=== PATIENT | female | born 1950 | race Caucasian/White ===

== ENCOUNTER 2019-10-08 17:49 | Inpatient (IN) | payer OTHER ==
[~2019-10-08] VITALS: Ht 170.2 cm; Wt 52.8 kg
[2019-10-08 18:02] VITALS: BP 93/51
[2019-10-08 18:31] LABS: URINE BILIRUBIN NEGATIVE (Negative); URINE BLOOD 3+ (Negative); URINE CLARITY SL CLOUDY; URINE COLOR YELLOW; URINE GLUCOSE-RANDOM* NEGATIVE (Negative); URINE KETONES NEGATIVE (Negative); URINE LEUKOCYTES-REFLEX 3+ (Negative); URINE NITRITE-REFLEX POSITIVE (Negative); URINE PROTEIN (DIPSTICK) TRACE (Negative); URINE SPECIFIC GRAVITY 1.015 (1.005-1.035); URINE UROBILINOGEN 0.2 E.U./dl (0.2-1.0)
[2019-10-08 18:32] LABS: HEMATOCRIT 31.3 % (37.0-47.0); HEMOGLOBIN 10.7 gm/dL (12.0-15.0); MCHC 34.3 g/dL (28.0-37.0); MCV 125.3 fL (80.0-100.0); RDW 17.9 % (10.5-14.5); WBC 9.6 thou/uL (4.0-11.0)
[2019-10-08 18:38] LABS: BACTERIA-REFLEX >30 Many /HPF (None Seen)
[2019-10-08 18:38] LABS: CALCIUM 8.2 mg/dL (8.5-10.1); CREATININE 1.2 mg/dL (0.6-1.0); POTASSIUM 3.8 mmol/L (3.5-5.1)
[2019-10-08 18:39] LABS: CASTS None Seen /LPF (None Seen); CRYSTALS None Seen /LPF (None Seen); SQUAMOUS 0-3 Few /LPF (0-3); URINE WBC-REFLEX >25 Many /HPF (0-5)
[2019-10-08 18:40] LABS: URINE RBC 0-2 Rare /HPF (0-2)
[2019-10-08 18:44] LABS: ALBUMIN 1.9 g/dL (3.4-5.0); TOTAL BILIRUBIN 0.6 mg/dL (<0.1-1.0); TOTAL PROTEIN 6.7 g/dL (6.4-8.2)
[2019-10-08 19:06] LABS: ABSOLUTE NEUTROPHILS 8.6 thou/uL (1.4-8.2); PLATELET COUNT 96 thou/uL (150-400); PLATELET ESTIMATE SLIGHTLY DECREASED
[2019-10-08 21:45] VITALS: BP 96/51
[2019-10-08 22:14] VITALS: BP 104/59
[2019-10-08 23:00] VITALS: BP 88/40
[2019-10-09] VITALS (57 sets, daily range): BP systolic 83–123; BP diastolic 38–79
[2019-10-09] MEDS ORDERED: NEURONTIN300 MG PO (01:17)
[2019-10-09] MEDS ORDERED: MS CONTIN15 MG PO (01:19)
[2019-10-09 05:52] LABS: HEMATOCRIT 20.5 % (37.0-47.0); MCH 42.9 pg (26.0-34.0); RBC 1.6 mil/uL (4.20-5.00); WBC 3.4 thou/uL (4.0-11.0)
[2019-10-09 05:54] LABS: MCHC 33.5 g/dL (28.0-37.0); RDW 17.5 % (10.5-14.5)
[2019-10-09 05:57] LABS: HEMOGLOBIN 6.9 gm/dL (12.0-15.0)
[2019-10-09 06:04] LABS: CALCIUM 6.2 mg/dL (8.5-10.1); CREATININE 0.7 mg/dL (0.6-1.0)
[2019-10-09 06:06] LABS: POTASSIUM 2.9 mmol/L (3.5-5.1)
[2019-10-09 06:49] LABS: APTT 28.7 Seconds (24.5-32.8); CALCIUM 6.1 mg/dL (8.5-10.1); CREATININE 0.8 mg/dL (0.6-1.0); FIBRINOGEN 130.7 mg/dL (210-360); INR 1.2; POTASSIUM 3.1 mmol/L (3.5-5.1); PROTIME 11.9 Seconds (9.3-11.4)
[2019-10-09 11:04] LABS: OBSERVED RETIC COUNT 1.22 % (0.6-2.6)
[2019-10-09 11:14] LABS: CALCIUM 6.5 mg/dL (8.5-10.1); CREATININE 0.9 mg/dL (0.6-1.0)
[2019-10-09 11:19] LABS: % SATURATION 12 % (20-39); IRON 14 ug/dL (50-170); POTASSIUM 2.8 mmol/L (3.5-5.1); TIBC 116 ug/dL (250-450)
[2019-10-09 21:07] LABS: HEMATOLOGY COMMENTS Note: (()); HEMOGLOBIN 7.7 g/dL (11.1-15.9)
[2019-10-10] VITALS (130 sets, daily range): BP systolic 49–159; BP diastolic 17–123
[2019-10-10 00:38] LABS: BE(vivo) -19.1 mmol/L (-2 to +3); HCO3 12.4 mmol/L (22.0-26.0); PCO2 59.8 mmHg (35.0-45.0); PO2 79.9 mmHg (80.0-100.0); pH 6.936 (7.360-7.450); sO2 85.9 % (92.0-98.0)
[2019-10-10 03:52] LABS: BE(vivo) -8.3 mmol/L (-2 to +3); HCO3 15.6 mmol/L (22.0-26.0); PCO2 26.9 mmHg (35.0-45.0); PO2 263.6 mmHg (80.0-100.0); pH 7.382 (7.360-7.450); sO2 99.6 % (92.0-98.0)
[2019-10-10 05:58] LABS: ABSOLUTE NEUTROPHILS 11.4 thou/uL (1.4-8.2); BASOPHILS 0.2 % (0.0-2.0); EOSINOPHILS 0.1 % (0.0-3.0); HEMATOCRIT 23.3 % (37.0-47.0); HEMOGLOBIN 7.8 gm/dL (12.0-15.0); LYMPHOCYTES 3.6 % (24.0-44.0); MCH 42.9 pg (26.0-34.0); MCHC 33.6 g/dL (28.0-37.0); MCV 127.4 fL (80.0-100.0); MONOCYTES 7.6 % (1.0-8.0); PLATELET COUNT 79 thou/uL (150-400); POLYS 88.5 % (36.0-66.0); RBC 1.83 mil/uL (4.20-5.00); RDW 18.2 % (10.5-14.5)
[2019-10-10 06:07] LABS: WBC 12.9 thou/uL (4.0-11.0)
[2019-10-10 06:25] LABS: ALBUMIN 1.2 g/dL (3.4-5.0); CALCIUM 6.3 mg/dL (8.5-10.1); MAGNESIUM 1.5 mg/dL (1.8-2.4); POTASSIUM 3.2 mmol/L (3.5-5.1); TOTAL BILIRUBIN 0.8 mg/dL (<0.1-1.0); TOTAL PROTEIN 4.5 g/dL (6.4-8.2)
[2019-10-10 09:29] LABS: HEMOGLOBIN 8.6 gm/dL (12.0-15.0); MCH 42.6 pg (26.0-34.0); MCHC 33.2 g/dL (28.0-37.0); MCV 128.2 fL (80.0-100.0); RBC 2.03 mil/uL (4.20-5.00); RDW 17.9 % (10.5-14.5); WBC 10.3 thou/uL (4.0-11.0)
[2019-10-10 09:43] LABS: CALCIUM 6.7 mg/dL (8.5-10.1); CREATININE 1.1 mg/dL (0.6-1.0); POTASSIUM 3.5 mmol/L (3.5-5.1)
[2019-10-10 10:02] LABS: ABSOLUTE NEUTROPHILS 9.4 thou/uL (1.4-8.2)
[2019-10-10 10:03] LABS: ANISOCYTOSIS 1+; MACROCYTES 2+
[2019-10-10 10:10] LABS: LARGE PLATELETS RARE
[2019-10-10 10:11] LABS: PLATELET COUNT 72 thou/uL (150-400)
[2019-10-11] VITALS (33 sets, daily range): BP systolic 57–138; BP diastolic 30–90
[2019-10-11 05:39] LABS: HEMOGLOBIN 9.2 gm/dL (12.0-15.0)
[2019-10-11 05:42] LABS: HEMATOCRIT 27.8 % (37.0-47.0); MCH 43.4 pg (26.0-34.0); MCHC 33.1 g/dL (28.0-37.0); MCV 131.1 fL (80.0-100.0); PLATELET COUNT 43 thou/uL (150-400); RBC 2.12 mil/uL (4.20-5.00); RDW 18.8 % (10.5-14.5)
[2019-10-11 05:59] LABS: CALCIUM 6.7 mg/dL (8.5-10.1); CREATININE 1.2 mg/dL (0.6-1.0)
[2019-10-11 06:01] LABS: POTASSIUM 4.8 mmol/L (3.5-5.1)
[2019-10-11 07:03] LABS: BE(vivo) -19.6 mmol/L (-2 to +3); HCO3 6.4 mmol/L (22.0-26.0); PO2 121.9 mmHg (80.0-100.0); sO2 97.7 % (92.0-98.0)
[2019-10-11 07:04] LABS: pH 7.194 (7.360-7.450)
[2019-10-11 12:13] LABS: ABSOLUTE NEUTROPHILS 8.6 thou/uL (1.4-8.2); METAMYELOCYTES 1 %; NUCLEATED RBCS 5 /100WBC
[2019-10-11 12:14] LABS: ANISOCYTOSIS 2+; PLATELET ESTIMATE DECREASED; TOXIC GRANULATION 1+
[2019-10-11 12:15] LABS: MACROCYTES 3+
[2019-10-11 12:16] LABS: BURR CELLS FEW; POIKILOCYTOSIS SLIGHT; TEARDROPS OCCASIONAL
== END 2019-10-11 12:04 | DRG 871 ==
LOC: ER 17:49 → ICU 19:22 → EROBS 19:22 → 3W 22:30 → ICU 10-09 06:05
PROVIDERS: Emergency Medicine; Internal Medicine Hematology & Oncology; Nurse Practitioner Family; Pediatrics; ADMIT Hospitalist
PROC: 30233N1 Transfusion of Nonautologous Red Blood Cells into Peripheral Vein, Percutaneous Approach (ICD-10-PCS; principal; 2019-10-09)
PROC: 02HV33Z Insertion of Infusion Device into Superior Vena Cava, Percutaneous Approach (ICD-10-PCS; 2019-10-10)
PROC: 5A09357 Assistance with Respiratory Ventilation, Less than 24 Consecutive Hours, Continuous Positive Airway Pressure (ICD-10-PCS; 2019-10-10)
PROC: 0BH18EZ Insertion of Endotracheal Airway into Trachea, Via Natural or Artificial Opening Endoscopic (ICD-10-PCS; 2019-10-10)
PROC: 5A1935Z Respiratory Ventilation, Less than 24 Consecutive Hours (ICD-10-PCS; 2019-10-10)
DX: A41.9 Sepsis, unspecified organism (principal); J18.9 Pneumonia, unspecified organism; G92 Toxic encephalopathy; R65.21 Severe sepsis with septic shock; J96.21 Acute and chronic respiratory failure with hypoxia; J96.22 Acute and chronic respiratory failure with hypercapnia; N39.0 Urinary tract infection, site not specified; D61.818 Other pancytopenia; E46 Unspecified protein-calorie malnutrition; Z68.1 Body mass index [BMI] 19.9 or less, adult; I48.91 Unspecified atrial fibrillation; E03.9 Hypothyroidism, unspecified; K22.70 Barrett's esophagus without dysplasia; F17.210 Nicotine dependence, cigarettes, uncomplicated; D53.9 Nutritional anemia, unspecified; I95.9 Hypotension, unspecified; K52.9 Noninfective gastroenteritis and colitis, unspecified; I71.9 Aortic aneurysm of unspecified site, without rupture; Z20.828 Contact with and (suspected) exposure to other viral communicable diseases; J84.10 Pulmonary fibrosis, unspecified; G35 Multiple sclerosis; Z66 Do not resuscitate; J44.9 Chronic obstructive pulmonary disease, unspecified; G40.909 Epilepsy, unspecified, not intractable, without status epilepticus; Z87.440 Personal history of urinary (tract) infections; Z82.49 Family history of ischemic heart disease and other diseases of the circulatory system; Z85.118 Personal history of other malignant neoplasm of bronchus and lung; Z79.2 Long term (current) use of antibiotics; Z79.899 Other long term (current) drug therapy
CPT/HCPCS: 10080; 10203; 10879